=== PATIENT | male | born 1955 | race Caucasian/White ===

== ENCOUNTER 2016-12-02 06:28 | Day surgery (SDC) | payer BC ==
--- NOTE | 2016-12-01 10:29 | HP ---
DATE OF ADMISSION: 12/02/2016. DATE OF OFFICE VISIT: 12/01/2016. SURGEON: Dr. Quita Kasper * (DICTATED BY TRICE FELIX) PROCEDURE: Right knee arthroscopy with partial medial meniscectomy, possible chondroplasty, possible synovectomy. CHIEF COMPLAINT: Right knee pain. 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 An MRI shows a medial meniscus tear and has elected to proceed with surgery which is scheduled with Dr. Kasper on 12/02/2016. PAST MEDICAL HISTORY: Hypertension, depression. PAST SURGICAL HISTORY: Lumbar diskectomy, nasal polyp removal, left inguinal hernia repair, vasectomy, tonsillectomy, and cataract removal. MEDICATIONS: Terbinafine, Sertraline, Nasonex, [place]-3, Meloxicam, Lisinopril, and Sudafed. ALLERGIES: None. FAMILY HISTORY: Colon, breast and prostate cancer. SOCIAL HISTORY: He is a 61-year-old gentleman who lives with his who does not smoke or use drugs. He uses occasional alcohol. REVIEW OF SYSTEMS: A complete 14 point review of systems was reviewed with the patient. It was all negative or not contributory. PHYSICAL EXAMINATION GENERAL: Well-developed, well-nourished, in no acute distress. He is alert and oriented times three. VITAL SIGNS: He stands 6'2" tall, weighs 210 pounds. Blood pressure 147/92, heart rate 73. HEENT: Normocephalic, atraumatic. NECK: Supple. No palpable lymph nodes. CARDIAC: Regular rate and rhythm. Strong S1, S2. PULMONARY: The lungs are clear to auscultation bilaterally. ABDOMEN: Soft, nontender, nondistended. MUSCULOSKELETAL: Right lower extremity: The skin is intact. There are no open wounds or abrasions. He has moderate joint effusion. Some tenderness over the medial joint line. Full range of motion of the right knee. His lower extremity muscle group strengths are intact at 5/5. He has 2+ dorsalis pedis pulses. He has intact sensation. Positive Amanda's, positive Apley's, no varus or valgus instability. NEUROLOGIC: Cranial nerves II through XII are intact. 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 An MRI shows a medial meniscus tear. He has elected to proceed with a right knee arthroscopy with partial median meniscectomy, possible chondroplasty, possible synovectomy. The surgery is scheduled for with Dr. Kasper. Dr. Kasper discussed the risks and benefits of the surgery at today's visit. All his questions were answered. He will follow-up with Dr. Kasper 10 to 14 days after the surgery. TRICE FELIX [id number]/[facility] #: [id number] [facility]PITAL[facility]
[~2016-12-02 06:28] MED LIST: Buffered Lidocaine 0.9% SYRIN* 5 ML/SYR SYRINGE INTRADERM ONE; Buffered Lidocaine 0.9% SYRIN* 5 ML/SYR SYRINGE ONE; ceFAZolin 2 GM PREMIX (*) 50 ML IVPB ONE
[2016-12-02] MEDS ORDERED: methylPREDNISolone ACETATE 80* 80 MG/ML 1 ML VIAL ONE (07:05)
[2016-12-02] MEDS ORDERED: EPINEPHrine AMP 1 MG/ML ONE (07:05)
[2016-12-02] MEDS ORDERED: Bupivacaine 0.5% SDV PF* 30 ML VIAL ONE (07:06)
[2016-12-02] MEDS ORDERED: fentaNYL* 50 MCG/ML 2 ML VIAL (100 MCG VIAL) ONE ×2 (07:20→08:50)
[2016-12-02] MEDS ORDERED: Dexamethasone IV* 4 MG/ML 1 ML (4 MG) ONE (07:20)
[2016-12-02] MEDS ORDERED: Propofol* 10 MG/ML 20 ML BTL IV PUSH ONE (07:20)
[2016-12-02] MEDS ORDERED: Midazolam* 1 MG/ML 5 ML VIAL (5 MG) ONE (07:20)
[2016-12-02] MEDS ORDERED: Ondansetron INJ* 2 MG/ML VIAL IV PRN (08:08)
[2016-12-02] MEDS ORDERED: HYDROmorphone* 1 MG/ML 1 ML SYR IV PRN (08:08)
[2016-12-02] MEDS ORDERED: HYDROcodone/ACETAMIN 5-325 MG* 1 TAB PO PRN (08:08)
[2016-12-02] MEDS ORDERED: Ketorolac INJ* 30 MG/ML 1 ML VIAL ONE (08:18)
[2016-12-02] MEDS ORDERED: Ondansetron INJ* 2 MG/ML VIAL ONE (08:21)
[2016-12-02] MEDS: fentaNYL* 50 MCG/ML 2 ML VIAL (100 MCG VIAL) IV PRN ×4 (08:52→09:32)
[2016-12-02] MEDS: oxyCODONE TAB* 5 MG TAB PO PRN ×2 (09:04→09:05)
[2016-12-02] MEDS ORDERED: oxyCODONE TAB* 5 MG TAB ONE (09:04)
[2016-12-02] MEDS ORDERED: HYDROmorphone* 1 MG/ML 1 ML SYR ONE (09:37)
[2016-12-02 10:42] VITALS: BP 156/88
--- NOTE | 2016-12-03 08:28 | OP ---
DATE OF OPERATION: 12/02/16 - [facility] DATE OF : 53 SURGEON: Quita Kasper MD. TRANSCRIPTION MANAGER: TRICE Loyola. Ms. Cerna did help throughout the procedure with preparation of leg, retraction with instruments, manipulation of the knee, and wound closure. ANESTHESIOLOGIST: Dr. Malone. ANESTHESIA: General. PRE-OP DIAGNOSIS: Right knee lateral and medial meniscal tears. 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 OPERATIVE PROCEDURE: Right knee arthroplasty with partial lateral meniscectomy , partial medial meniscectomy, and anterior synovectomy. COMPLICATIONS: None. SPECIMEN: None. EBL: Less than 25 cc. TOURNIQUET TIME: None. 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 The patient developed immediate acute severe pain in the knee with a locked sensation and difficulty ambulating. We ordered an MRI of the knee to evaluate for meniscal tear. Both medial meniscal tear and bucket-handle tear of the lateral meniscus were identified on MRI. Due to the patient's significant pain and difficulty ambulating, he elected to have right knee arthroscopy with partial medial and lateral meniscectomies. The patient understood that he had some baseline valgus arthritis on plain radiographs, and arthritic pain would not be altered by this procedure. Informed consent was obtained from the patient. He understood the risks of the surgery included but were noted limited to bleeding, infection, damage to nearby structures, continued pain, need for further surgery, stroke, heart attack, blood clot, and . He wished to proceed. INTRAOPERATIVE FINDINGS: Intraoperatively, the patient had a displaced bucket- handle type tear of the lateral meniscus involving the white-red zone. He had a horizontal minimally displaced tear of the medial meniscus involving the white -red zone. His ACL and PCL were intact. He had grade 3 and 4 Outerbridge cartilage changes in the lateral and patellofemoral compartments. He had multiple small loose bodies which were cartilage fragments in the joint fluid. 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 His right lower extremity was marked as the correct operative side. Informed consent was signed and placed in the chart. The patient was taken to the operating room and placed under general anesthesia. The right lower extremity was prepped and draped in the usual sterile fashion. Pre-op time-out was made to correctly identify the patient's side and site. Appropriate perioperative antibiotics were given within 1 hour of incision. A one-half cm anterolateral portal incision was made with a 15-blade and carried through the capsule. Trocar was introduced. As soon as the light and water sources were turned on, there was immediate visualization of the supra- patellar pouch. A tour of the knee joint was performed. Suprapatellar pouch had no obvious abnormalities, although there was a significant number of cartilage fragments in the joint fluid. Patellofemoral compartment showed grade 3 and 4 Outerbridge cartilage changes with exposed subchondral bone along the medial and lateral patellar facet as well as in the trochlear groove of the femur. Medial gutters showed some anterior synovitis as well as multiple pieces of cartilage in the gutter. Medial compartment showed a horizontal type tear involving the white-white and white-red zone of the medial meniscus. Minimal degenerative change of the ACL appeared to be intact. The knee was placed in a [id number] position. The displaced bucket-handle type tear of the lateral meniscus was visualized. There was grade 3 and 4 Outer-bridge cartilage changes along the lateral tibial plateau and lateral femoral condyle. Lateral gutter had small cartilage fragments, but no other abnormality. Under direct visualization, a medial portal incision was made with a 15 blade. Shaver and radiofrequency ablation wand were used to perform an anterior synovectomy and improve visualization in the joint. A probe was introduced and the lateral meniscus tear was reduced back into the lateral compartment. Straight bitter as well as shaver were used to perform partial lateral meniscectomy. Radiofrequency ablation wand was used to smooth the remaining edge of the lateral meniscus, mainly in the white-red zone. Further probing of the meniscus did not show any further displaced fragments or tearing. Once again, the significant degenerative changes along the lateral femoral condyle and tibial plateau were noted. These were grade 3 and 4 Outerbridge cartilage changes. Probing of the ACL and PCL showed no laxity or deficiency. The medial compartment was then addressed. There were minimal degenerative changes. A straight bitter was used to perform partial medial meniscectomy in the white -red zone of the body of the medial meniscus. The tear was carefully excised. At this time, shaver was introduced into the suprapatellar pouch, and the knee was copiously irrigated. Numerous cartilage fragments were removed from the joint fluid in this manner. The knee position was changed frequently in order to disrupt any cartilage fragments in the gutters and excise these through the shaver's suction. All instruments were carefully removed. The incisions were closed using 3-0 nylon suture. Sterile Xeroform, 4x4s, and Webril were placed over the incision. Jaren wrap and cold pack were placed over this. The patient's anesthesia was reversed without difficulty. He was taken to the PACU in stable condition. Intended weightbearing will be weightbearing as tolerated. Intended DVT prophylaxis will be aspirin for one week. [id number]/[facility] #: [id number] MTDD
== END 2016-12-02 10:44 | disposition home or self-care (01) ==
LOC: OR 06:28
PROVIDERS: ATTEND Orthopaedic Surgery Adult Reconstructive Orthopaedic Surgery
DX: S83.251A Bucket-handle tear of lateral meniscus, current injury, right knee, initial encounter (principal); S83.241A Other tear of medial meniscus, current injury, right knee, initial encounter; X50.0XXA Overexertion from strenuous movement or load, initial encounter; Y92.9 Unspecified place or not applicable; M17.11 Unilateral primary osteoarthritis, right knee; I10 Essential (primary) hypertension
CPT/HCPCS: A9270-GY; J0171; J0690; J1040; J1100; J1170; J1885; J2250; J2405; J2704; J3010

== ENCOUNTER 2017-09-21 06:28 | Day surgery (SDC) | payer BC ==
[~2017-09-21 06:28] MED LIST changes: +Acetaminophen TAB* 325 MG PO PRN; -Buffered Lidocaine 0.9% SYRIN* 5 ML/SYR SYRINGE ONE; -ceFAZolin 2 GM PREMIX (*) 50 ML IVPB ONE
[2017-09-21] MEDS ORDERED: fentaNYL* 50 MCG/ML 2 ML VIAL (100 MCG VIAL) ONE (07:20)
[2017-09-21] MEDS ORDERED: Midazolam* 1 MG/ML 2 ML VIAL (2 MG) ONE ×2 (07:20→07:38)
[2017-09-21 08:08] VITALS: BP 117/74
[2017-09-21] MEDS ORDERED: Ketorolac 0.5% OPHTH (NF) 0.5 % 5 ML BTL ONE (09:54)
[2017-09-21] MEDS ORDERED: Neomycin/Polymy/Dex OPTH.SUSP* MAXITROL 0.1% 5 ML ONE (09:54)
[2017-09-21] MEDS ORDERED: Lidocaine 2% EPI 1:200000 MPF*10-20 ML VIAL ONE (09:54)
[2017-09-21] MEDS ORDERED: Lidocaine 1%* 5 ML VIAL ONE (09:54)
[2017-09-21] MEDS ORDERED: acetaZOLAMIDE TAB* 250 MG ONE (09:54)
[2017-09-21] MEDS ORDERED: Povidone Iodine 5% OPTH* 30 ML BTL ONE (09:54)
[2017-09-21] MEDS ORDERED: Phenylephrine 2.5% OPTH.SOL* 2 ML BTL ONE (09:54)
[2017-09-21] MEDS ORDERED: Cyclopentolate 1% OPTH.SOL* 2 ML BTL ONE (09:54)
[2017-09-21] MEDS ORDERED: Proparacaine 0.5% OPHTH.SOL* 15 ML BTL ONE (09:54)
--- NOTE | 2017-09-21 12:57 | OP ---
OPERATIVE NOTE: DATE OF OPERATION: 09/21/17 DATE OF : 53 SURGEON: Jak Whatley M.D. PREOPERATIVE DIAGNOSIS: Cataract right eye. POSTOPERATIVE DIAGNOSIS: Cataract right eye. OPERATIVE PROCEDURE: Extracapsular cataract extraction with intraocular lens implant right eye. PROCEDURE: The patient was brought to the operating room after being given 1/2% Alcaine with epineph rine drops in the preoperative area. The eye was prepped and draped in the usual sterile fashion. S terile drape and eyelid speculum were placed. Again, topical 1/2% Alcaine with epinephrine was given . A paracentesis incision was made at the 9 o'clock position with the No.75 blade. Clear cornea inc ision 2.2 x 2.2-mm was created at the 12 o'clock position starting at the anterior limbus using the 2 .2-mm keratome. The anterior chamber was irrigated with 0.4 mL of 1% non-preservative intracameral l idocaine and filled with DisCoVisc. A capsulorrhexis was completed using the cystotome and the Utrat a forceps. Hydrodissection was performed with balanced salt solution. The lens nucleus was removed w ith the Phacoemulsification handpiece without incident. Cortex was removed with the irrigation-aspir ation handpiece. The capsular bag was re-inflated using DisCoVisc and an SN60WF 17.5 Implant was ins erted with the shooter. The irrigation-aspiration handpiece was used to remove all residual DisCoVis c. The eye was refilled with balanced salt solution and the wound checked and found to be watertight . Topical Maxitrol drops were given. [id number]/[facility] #: [id number]
== END 2017-09-21 08:09 | disposition home or self-care (01) ==
LOC: OREAST 06:28
PROVIDERS: ATTEND Specialist
DX: H25.811 Combined forms of age-related cataract, right eye (principal); I10 Essential (primary) hypertension; M10.9 Gout, unspecified; Z86.010 Personal history of colon polyps
CPT/HCPCS: A9270-GY; J2250; J3010; V2632